=== PATIENT | male | born 1955 | race Native Hawaiian/Other Pacific Islander ===

== ENCOUNTER 2017-10-03 10:47 | Emergency (ER) | payer OTHER, SELFPAY ==
[2017-10-03 10:54] VITALS: BP 133/70; PULSE 70; RESP 18; TEMP 36.7; O2SAT 97
--- NOTE | 2017-10-03 11:15 | ED.WOUNDLAC ---
HPI - Wound/Laceration General Chief Complaint: Wound/Laceration Stated Complaint: CUT LEFT PALM Time Seen by Provider: 10/03/17 10:59 Source: patient Mode of arrival: ambulatory Limitations: no limitations History of Present Illness HPI narrative: Patient is a 61-year-old male who presents with left hand laceration. He was at work when he sliced his hand on a wire and a battery. He has some numbness and tingling in his left ring finger. Full range of motion. Onset (ago): minute(s) Related Data Home Medications Medication Instructions Recorded Confirmed sildenafil [Viagra] 100 mg PO PRN PRN 10/03/17 10/03/17 temazepam 30 mg PO BEDTIME 10/03/17 10/03/17 Previous Rx's Medication Instructions Recorded C-Testosterone 50mg/ml 1 ml TOPICAL QDAY #30 ml 07/04/17 cyclobenzaprine 10 mg tablet 10 mg PO TIDP PRN #30 tab 08/28/17 levothyroxine 100 mcg tablet 100 mcg PO QAM #90 tab 08/28/17 albuterol sulfate [Proventil HFA] 2 puff INH SEE INSTRUCTIONS #8.5 gm 09/12/17 Allergies Allergy/AdvReac Type Severity Reaction Status Date / Time penicillin G [PENICILLIN G] Allergy Severe hives Verified 10/03/17 10:54 Review of Systems Review of Systems GENERAL: Denies chills,fever HEENT: Denies throat pain RESPIRATORY: Denies dyspnea, cough, wheezing CARDIOVASCULAR: Denies chest pain, palpitations GASTROINTESTINAL: Denies nausea, vomiting MUSCULOSKELETAL: Denies extremity pain, injury SKIN: See HPI NEUROLOGIC: Denies weakness, dizziness, headache, numbness 8 point review of systems is negative except for those stated above and HPI PFSH Medical History Hypothyroid (Acute) Surgical History Status post appendectomy Family History Father Cancer Hypertension Social History Smoking Status: Never smoker alcohol intake: never substance use type: does not use Exam Initial Vital Signs Initial Vital Signs: Vital Signs Temperature 98.1 F 10/03/17 10:54 Pulse Rate 70 10/03/17 10:54 Respiratory Rate 18 10/03/17 10:54 Blood Pressure 133/70 H 10/03/17 10:54 Pulse Oximetry 97 10/03/17 10:54 GENERAL: Well-appearing, well-nourished and in no acute distress. CARDIOVASCULAR: peripheral pulses in tact, cap refill <2 sec RESPIRATORY: No respiratory distress, speaks in full sentences without difficulty EXTREMITIES: Normal range of motion, no clubbing or edema. Neurovascularly intact NEUROLOGICAL: Cranial nerves II through XII grossly intact. Normal gait and speech. SKIN: A flap-like laceration on the palmar side at base of 4th finger Procedures Laceration Repair Laceration 1: Site: hand Side (If applicable): left Size (cm): 3 Description: flap Depth: simple, single layer Local Anesthetic: lidocaine 1% and with bicarb Amount of anesthesia used (mL): 3 Pre-repair: wound explored, irrigated extensively and deep structures intact Skin layer closed with: nylon Size (cm): 5-0 Number of sutures: 4 Technique: simple, interrupted Course Vital Signs - 8 hr 10/03/17 10:54 Temperature 98.1 F Pulse Rate 70 Respiratory Rate 18 Blood Pressure 133/70 H Pulse Oximetry 97 Discharge Plan Departure Patient Disposition: Home, Self-Care Clinical Impression: Laceration of hand, left Discharge Date/Time: 10/03/17 11:53 Interventions: ED Discharge Assessment Last Done: 10/03/17 11:51 Instructions: DI for Laceration Repair Activity Restrictions/Additional Instructions: 1. Have your suture removed in 5-7 days, you may go to walk-in clinic, return to the ER or call your primary care physician. 2. No soaking in water including dishes, bathtubs, Lakes, swimming pools etc 3. Signs of infection include, but not limited to, increased redness, increased swelling, increased pain, fever and purulent drainage, if the symptoms should arise, you may need an antibiotic and you should have a reevaluation either by your primary care provider or by the emergency department. Prescriptions: No Action C-Testosterone 50mg/ml cream 1 ml Topical QDAY Qty: 30 RF: 5 levothyroxine 100 mcg tablet 100 mcg PO QAM Qty: 90 RF: 0 cyclobenzaprine 10 mg tablet 10 mg PO TIDP PRN (Reason: muscle spasm) Qty: 30 RF: 1 albuterol sulfate [Proventil HFA] 90 mcg/actuation HFA aerosol inhaler 2 puff INH SEE INSTRUCTIONS Qty: 8.5 RF: 11 sildenafil [Viagra] 100 mg tablet 100 mg PO PRN PRN (Reason: Sexual Activity) RF: 0 temazepam 30 mg capsule 30 mg PO BEDTIME RF: 0 Referrals: Urbano López MD [Primary Care Provider] -
== END 2017-10-03 11:53 | disposition home or self-care (01) ==
LOC: ED 11:38
PROVIDERS: Emergency Provider Emergency Medicine; PCP Family Medicine
DX: S61.412A Laceration without foreign body of left hand, initial encounter (principal); W26.8XXA Contact with other sharp object(s), not elsewhere classified, initial encounter; Y99.0 Civilian activity done for income or pay
CPT/HCPCS: 12001; 12002; 12011; 99283

== ENCOUNTER → 2018-06-11 09:23 | Outpatient (CLI) | payer OTHER, SELFPAY ==
[2018-06-11 10:00] LABS: Add Manual Diff / Slide Review NO; Basophils Absolute Auto 200 /uL (0-100); Basophils Percent Auto 2.6 % (0-2); Eosinophils Absolute Auto 200 /uL (0-450); Eosinophils Percent Auto 3.5 % (2-4); Hematocrit 47.5 % (41-53); Lymphocytes Absolute Auto 2700 /uL (1100-4500); Lymphocytes Percent Auto 44.4 % (25-40); Mean Corpuscular HGB Conc 33.6 % (30-36); Mean Corpuscular Hemoglobin 31.9 PG (26-34); Monocytes Absolute Auto 600 /uL (0-900); Monocytes Percent Auto 9.7 % (3-14); Neutrophils Absolute Auto 2500 /uL (1500-7000); Neutrophils Percent Auto 39.8 % (50-75); Platelet Count 350 X10^3/uL (150-400); Red Cell Distribution Width 14.1 % (11.6-14.8); White Blood Cell Count 6.2 X10^3/uL (4.5-11.0)
[2018-06-11 11:03] LABS: Alanine Aminotransferase 45 IU/L (21-72); Albumin 4.4 g/dL (3.5-5.0); Albumin Globulin Ratio 1.5 (1.0-2.8); Alkaline Phosphatase 78 U/L (38-126); Aspartate Aminotransferase 34 IU/L (17-59); Bilirubin Total 0.6 mg/dL (0.2-1.3); Blood Urea Nitrogen 20 mg/dL (9-20); Calcium 9.7 mg/dL (8.4-10.2); Carbon Dioxide 29 mmol/L (22-32); Chloride 101 mmol/L (98-107); Cholesterol 211 mg/dL (140-199); Estimated Glomerular Filt Rate > 60.0 mL/min (>60); Globulin 2.9 g/dL (1.7-4.1); Glucose 106 mg/dL (80-110); HDL Cholesterol 56 mg/dL (40-60); HEMOLYSIS < 15 (0-50); LDL Cholesterol Calculated 143 mg/dL (<100); Potassium 5.2 mmol/L (3.4-5.1); Sodium 139 mmol/L (137-145); Thyroid Stimulating Hormone 1.42 uIU/mL (0.47-4.68); Total Protein 7.3 g/dL (6.3-8.2); Triglycerides 62 mg/dL (35-150)
[2018-06-11 11:34] LABS: Prostate Specific Antigen 1.58 ng/mL (0.10-4.00)
== END ==
PROVIDERS: PCP Family Medicine; Visit Provider Family Medicine
DX: E03.9 Hypothyroidism, unspecified (principal); E78.2 Mixed hyperlipidemia
CPT/HCPCS: 36415; 80053; 80061; 84153; 84443; 85025

== ENCOUNTER → 2019-10-08 07:43 | Outpatient (CLI) | payer OTHER, SELFPAY ==
[2019-10-08 09:32] LABS: Add Manual Diff / Slide Review NO; Basophils Absolute Auto 100 /uL (0-100); Basophils Percent Auto 2.3 % (0-2); Eosinophils Absolute Auto 200 /uL (0-450); Eosinophils Percent Auto 3.2 % (2-4); Hematocrit 50.1 % (41-53); Hemoglobin 17.2 g/dL (13.5-17.5); Lymphocytes Absolute Auto 2200 /uL (1100-4500); Lymphocytes Percent Auto 36.4 % (25-40); Mean Corpuscular HGB Conc 34.3 % (30-36); Mean Corpuscular Hemoglobin 32.5 PG (26-34); Mean Corpuscular Volume 94.9 fL (80-100); Monocytes Absolute Auto 600 /uL (0-900); Monocytes Percent Auto 10.4 % (3-14); Neutrophils Absolute Auto 2900 /uL (1500-7000); Neutrophils Percent Auto 47.7 % (50-75); Platelet Count 264 X10^3/uL (150-400); Red Blood Cell Count 5.28 X10^6/uL (4.5-5.9); Red Cell Distribution Width 14.5 % (11.6-14.8); White Blood Cell Count 6.1 X10^3/uL (4.5-11.0)
[2019-10-08 09:53] LABS: Alanine Aminotransferase 36 IU/L (<50); Albumin 4.5 g/dL (3.5-5.0); Albumin Globulin Ratio 1.5 (1.0-2.8); Alkaline Phosphatase 81 U/L (38-126); Aspartate Aminotransferase 46 IU/L (17-59); BUN Creatinine Ratio 21.2 (6-22); Bilirubin Total 0.7 mg/dL (0.2-1.3); Blood Urea Nitrogen 21 mg/dL (9-20); Calcium 9.7 mg/dL (8.4-10.2); Carbon Dioxide 28 mmol/L (22-32); Chloride 102 mmol/L (98-107); Cholesterol 236 mg/dL (140-199); Estimated Glomerular Filt Rate > 60.0 mL/min (>60); Globulin 3.1 g/dL (1.7-4.1); Glucose 101 mg/dL (80-110); HDL Cholesterol 65 mg/dL (40-60); HEMOLYSIS < 15 (0-50); LDL Cholesterol Calculated 152 mg/dL (<100); Potassium 4.2 mmol/L (3.4-5.1); Sodium 139 mmol/L (137-145); Total Protein 7.6 g/dL (6.3-8.2); Triglycerides 93 mg/dL (35-150)
[2019-10-08 10:18] LABS: Thyroid Stimulating Hormone 1.53 uIU/mL (0.47-4.68)
== END ==
PROVIDERS: PCP Family Medicine; Referring Provider Family Medicine; Visit Provider Family Medicine
DX: E03.9 Hypothyroidism, unspecified (principal); E78.2 Mixed hyperlipidemia
CPT/HCPCS: 36415; 80053; 80061; 84443; 85025

== ENCOUNTER → 2020-04-17 15:57 | Outpatient (CLI) | payer OTHER, SELFPAY ==
[2020-04-17 17:47] LABS: Add Manual Diff / Slide Review NO; Basophils Absolute Auto 100 /uL (0-100); Basophils Percent Auto 1.1 % (0-2); Eosinophils Absolute Auto 100 /uL (0-450); Eosinophils Percent Auto 2.3 % (2-4); Hematocrit 46.3 % (41-53); Hemoglobin 15.5 g/dL (13.5-17.5); Lymphocytes Absolute Auto 2200 /uL (1100-4500); Mean Corpuscular HGB Conc 33.4 % (30-36); Mean Corpuscular Hemoglobin 31.8 PG (26-34); Monocytes Absolute Auto 600 /uL (0-900); Monocytes Percent Auto 10.8 % (3-14); Neutrophils Absolute Auto 2800 /uL (1500-7000); Neutrophils Percent Auto 47.8 % (50-75); Platelet Count 231 X10^3/uL (150-400); Red Blood Cell Count 4.88 X10^6/uL (4.5-5.9); Red Cell Distribution Width 13.8 % (11.6-14.8); White Blood Cell Count 5.8 X10^3/uL (4.5-11.0)
[2020-04-17 18:29] LABS: Prostate Specific Antigen Scrn 1.23 ng/mL (0.1-4.0)
[2020-04-21 05:10] LABS: Percent Free Testosterone 3.41 % (1.50-4.20); Testosterone Free 22.13 ng/dL (5.00-21.00)
== END ==
PROVIDERS: PCP Family Medicine; Referring Provider Family Medicine; Visit Provider Family Medicine
DX: R79.89 Other specified abnormal findings of blood chemistry (principal); Z12.5 Encounter for screening for malignant neoplasm of prostate
CPT/HCPCS: 36415; 84402; 84403; 85025; G0103

== ENCOUNTER → 2020-09-24 11:10 | Outpatient (CLI) | payer OTHER, SELFPAY ==
--- NOTE | 2020-09-24 11:11 | DI.RAD.S_ITS ---
PROCEDURE: XR ELBOW RT MIN 3V INDICATIONS: right elbow pain TECHNIQUE: 3 views of the elbow were acquired. COMPARISON: None. FINDINGS: Bones: No fractures or dislocations. No suspicious bony lesions. Prominent olecranon bone spur. Soft tissues: No elbow joint effusion. No suspicious soft tissue calcifications. IMPRESSION: Prominent olecranon bone spur. Dictated by: Wenceslao David RRLudivina Interpreted: Valentín Young MD on 09/24/2020 at 12:23 Transcribed by: ALTAGRACIA on 09/24/2020 at 12:23 Approved by: Valentín Young M.D. on 09/24/2020 at 14:46
== END ==
PROVIDERS: PCP Family Medicine; Referring Provider Family Medicine; Visit Provider Family Medicine
DX: M25.521 Pain in right elbow (principal); M70.21 Olecranon bursitis, right elbow; M77.8 Other enthesopathies, not elsewhere classified
CPT/HCPCS: 73080

== ENCOUNTER → 2020-10-21 11:17 | Outpatient (CLI) | payer OTHER, SELFPAY | PROVIDERS: PCP Family Medicine; Visit Provider Physician Assistant | DX: T14.8XXA Other injury of unspecified body region, initial encounter (principal) | CPT/HCPCS: 87070; 87075; 87077; 87205 ==

== ENCOUNTER → 2021-02-17 08:59 | Outpatient (CLI) | payer OTHER, SELFPAY ==
[2021-02-17 10:02] LABS: Add Manual Diff / Slide Review NO; Basophils Absolute Auto 100 /uL (0-100); Basophils Percent Auto 1.5 % (0-2); Eosinophils Absolute Auto 200 /uL (0-450); Eosinophils Percent Auto 4.1 % (2-4); Hematocrit 45.3 % (41-53); Hemoglobin 15.4 g/dL (13.5-17.5); Lymphocytes Absolute Auto 1700 /uL (1100-4500); Lymphocytes Percent Auto 32.6 % (25-40); Mean Corpuscular HGB Conc 33.9 % (30-36); Mean Corpuscular Volume 94.3 fL (80-100); Monocytes Absolute Auto 500 /uL (0-900); Monocytes Percent Auto 10.4 % (3-14); Neutrophils Absolute Auto 2700 /uL (1500-7000); Neutrophils Percent Auto 51.4 % (50-75); Platelet Count 256 X10^3/uL (150-400); Red Cell Distribution Width 13.6 % (11.6-14.8); White Blood Cell Count 5.2 X10^3/uL (4.5-11.0)
[2021-02-17 11:38] LABS: Erythrocyte Sedimentation Rate 2 MM/HR (0-15)
== END ==
PROVIDERS: PCP Family Medicine; Referring Provider Orthopaedic Surgery; Visit Provider Orthopaedic Surgery
DX: Z01.812 Encounter for preprocedural laboratory examination (principal)
CPT/HCPCS: 36415; 85025; 85651

== ENCOUNTER → 2022-02-18 11:25 | Outpatient (CLI) | payer OTHER, SELFPAY ==
[2022-02-18 13:42] LABS: Add Manual Diff / Slide Review NO; Basophils Absolute Auto 100 /uL (0-100); Basophils Percent Auto 1.3 % (0-2); Eosinophils Absolute Auto 100 /uL (0-450); Hematocrit 50.1 % (41-53); Hemoglobin 16.4 g/dL (13.5-17.5); Lymphocytes Absolute Auto 1700 /uL (1100-4500); Lymphocytes Percent Auto 27.7 % (25-40); Mean Corpuscular HGB Conc 32.6 % (30-36); Monocytes Absolute Auto 500 /uL (0-900); Monocytes Percent Auto 8.9 % (3-14); Neutrophils Absolute Auto 3700 /uL (1500-7000); Neutrophils Percent Auto 60.1 % (50-75); Platelet Count 279 X10^3/uL (150-400); Red Blood Cell Count 5.27 X10^6/uL (4.5-5.9); Red Cell Distribution Width 14.1 % (11.6-14.8); White Blood Cell Count 6.1 X10^3/uL (4.5-11.0)
[2022-02-18 14:39] LABS: Alanine Aminotransferase 28 IU/L (<50); Albumin 4.3 g/dL (3.5-5.0); Albumin Globulin Ratio 1.4 (1.0-2.8); Alkaline Phosphatase 64 U/L (38-126); Aspartate Aminotransferase 29 IU/L (17-59); BUN Creatinine Ratio 27.4 (6-22); Blood Urea Nitrogen 26 mg/dL (9-20); Carbon Dioxide 31 mmol/L (22-32); Chloride 100 mmol/L (98-107); Cholesterol 245 mg/dL (140-199); Estimated Glomerular Filt Rate > 60 mL/min (>60); Globulin 3.1 g/dL (1.7-4.1); Glucose 91 mg/dL (80-110); HDL Cholesterol 55 mg/dL (40-60); HEMOLYSIS < 15 (0-50); LDL Cholesterol Calculated 171 mg/dL (<100); Potassium 4.6 mmol/L (3.4-5.1); Sodium 138 mmol/L (137-145); Total Protein 7.4 g/dL (6.3-8.2); Triglycerides 97 mg/dL (35-150)
[2022-02-18 15:09] LABS: TSH w/ Reflex to FT4 1.78 uIU/mL (0.47-4.68)
[2022-02-26 12:27] LABS: Percent Free Testosterone 2.33 % (1.50-4.20); Testosterone Free 12.59 ng/dL (5.00-21.00); Testosterone Total 540.4 ng/dL (264.0-916.0)
== END ==
PROVIDERS: PCP Family Medicine; Referring Provider Family Medicine; Visit Provider Family Medicine
DX: E03.9 Hypothyroidism, unspecified (principal); E78.2 Mixed hyperlipidemia; F51.01 Primary insomnia; N30.10 Interstitial cystitis (chronic) without hematuria; R79.89 Other specified abnormal findings of blood chemistry
CPT/HCPCS: 36415; 80053; 80061; 84402; 84403; 84443; 85025

== ENCOUNTER 2022-07-12 10:15 | Emergency (ER) | payer OTHER, SELFPAY ==
[2022-07-12] VITALS (23 sets, daily range): BP systolic 90–148; BP diastolic 56–93; PULSE 56–140; RESP 10–24; TEMP 36.4; O2SAT 96–100; BMI 21.2
--- NOTE | 2022-07-12 10:28 | DI.RAD.S_ITS ---
PROCEDURE: XR CHEST 1V INDICATIONS: chest pain TECHNIQUE: One view of the chest was acquired. COMPARISON: [facility], CHEST 1 VIEW, 08/28/2014, 14:38. [facility], CHEST 2 VIEW, 03/25/2013, 15:37. FINDINGS: Surgical changes and devices: None. Lungs and pleura: Lungs are clear. No pleural effusions or pneumothorax. Mediastinum: Mediastinal contours appear normal. Heart size is normal. Bones and chest wall: No suspicious bony lesions. Overlying soft tissues appear unremarkable. IMPRESSION: No acute radiographic abnormality. Dictated by: Mohan Arnold M.D. on 07/12/2022 at 10:45 Approved by: Mohan Arnold M.D. on 07/12/2022 at 10:45
[2022-07-12 10:45] LABS: Add Manual Diff / Slide Review NO; Basophils Absolute Auto 100 /uL (0-100); Basophils Percent Auto 1.2 % (0-2); Eosinophils Absolute Auto 200 /uL (0-450); Eosinophils Percent Auto 2.3 % (2-4); Hematocrit 47.1 % (41-53); Lymphocytes Absolute Auto 1900 /uL (1100-4500); Lymphocytes Percent Auto 26.5 % (25-40); Mean Corpuscular HGB Conc 34.1 % (30-36); Mean Corpuscular Hemoglobin 31.9 PG (26-34); Mean Corpuscular Volume 93.6 fL (80-100); Monocytes Absolute Auto 800 /uL (0-900); Monocytes Percent Auto 10.2 % (3-14); Neutrophils Absolute Auto 4400 /uL (1500-7000); Neutrophils Percent Auto 59.8 % (50-75); Platelet Count 264 X10^3/uL (150-400); Red Blood Cell Count 5.04 X10^6/uL (4.5-5.9); Red Cell Distribution Width 14.9 % (11.6-14.8); White Blood Cell Count 7.4 X10^3/uL (4.5-11.0)
--- NOTE | 2022-07-12 10:48 | ED.GENADULT ---
HPI - General Adult General Chief complaint: Arrhythmia/Palpitations Stated complaint: heart arrhythmia Time Seen by Provider: 07/12/22 10:33 Source: patient Mode of arrival: Ambulatory History of Present Illness HPI narrative: Patient is a 66-year-old male. Has a distant history of atrial fibrillation. Has had an ablation in the past. That was approximately 10 years ago. He has not had any issues since then. This morning he states that he woke up and after he went to work he started to feel palpitations. Was somewhat lightheaded. No chest pain. Has been consistent since the onset. No recent medication changes. No abdominal pain nausea vomiting. No headaches. He is not on anticoagulation. Related Data Previous Rx's Medication Instructions Recorded sildenafil 100 mg tablet (Viagra) 100 mg PO PRN PRN Sexual Activity 12/10/21 #10 tabs oxybutynin chloride 5 mg tablet See Rx Instructions .Route 12/21/21 .COMPLEX #90 tabs temazepam 30 mg capsule See Rx Instructions .Route 02/17/22 .COMPLEX #30 caps cyclobenzaprine 10 mg tablet 10 mg PO TID #90 tabs 03/18/22 albuterol sulfate 90 mcg/actuation 2 puff inhalation Q6H #8.5 grams 05/03/22 aerosol inhaler (Proventil HFA) C-TESTOSTERONE 50MG/ML VERSABASE See Rx Instructions .Route 06/13/22 CREAM .COMPLEX #30 mL levothyroxine 100 mcg tablet See Rx Instructions .Route 07/08/22 .COMPLEX #90 tabs rivaroxaban 20 mg tablet (Xarelto) 20 mg PO QPM #30 tabs 07/12/22 Allergies Allergy/AdvReac Type Severity Reaction Status Date / Time penicillin G [PENICILLIN G] Allergy Severe hives Verified 07/12/22 10:28 Review of Systems Constitutional Constitutional: Reports system reviewed and no additional complaints, except as documented Cardiovascular Cardiovascular: Reports system reviewed and no additional complaints, except as documented Respiratory Respiratory: Reports system reviewed and no additional complaints, except as documented Gastrointestinal Gastrointestinal: Reports system reviewed and no additional complaints, except as documented Musculoskeletal Musculoskeletal: Reports system reviewed and no additional complaints, except as documented Integumentary/Breasts Skin/Breast: Reports system reviewed and no additional complaints, except as documented Neurologic Neurologic: Reports system reviewed and no additional complaints, except as documented Hematologic/Lymphatic On Anticoagulants: No Patient History Medical History 1st degree AV block History of atrial fibrillation Hypothyroid Insomnia Low testosterone in male Olecranon bone spur Plantar wart of both feet Surgical History History of radiofrequency ablation procedure for cardiac arrhythmia Status post appendectomy Family History Father Cancer Hypertension Social History Smoking Status: Former smoker alcohol intake: never substance use type: does not use Smoking Status: Former smoker alcohol intake frequency: holidays/special occasions only Substance Use Type: does not use Exam Initial Vital Signs Initial Vital Signs: Vital Signs Temperature 97.5 F L 07/12/22 10:24 Pulse Rate 120 H 07/12/22 10:24 Respiratory Rate 12 07/12/22 10:24 Blood Pressure 148/93 H 07/12/22 10:24 Pulse Oximetry 99 07/12/22 10:24 Oxygen Delivery Method Room Air 07/12/22 10:24 HENMT Head: normal to inspection and normocephalic Resp Effort & Inspection: normal respiratory effort Auscultation: clear to auscultation bilaterally Cardio Rate: tachycardic Rhythm: abnormal rhythm GI Inspection: normal to inspection and non-distended Skin General: no rashes or lesions noted Neuro General: patient alert, patient awake and moves all extremities Extrem General: normal to inspection and capillary refill normal Procedures Procedural Sedation Consent signed: Yes Time out performed: Yes Indication: cardioversion ASA Class: II Mallampati Airway Classification: Class II Preparation: youth nutritional monitor applied, pulse oximeter, capnometry used, supplemental O2 applied, suction/airway equipment at bedside and IV secured Fentanyl: IV Fentanyl dose (mcg): 12 IV Propofol dose (mg): 90 Intraservice time/total sedation time (min): 15 ED Sedation Level: Moderate (Concious) Patient Tolerated Procedure: Well Complications: hypoventilation Interventions: Airway repositioned and Oxygen applied Course Orders Ordered: ED Orders 07/12/22 10:24 COVID19 -Nasal RAPID Stat Complete Blood Count AUTO DIFF Stat Comprehensive Metabolic Panel Stat Lipase Stat Magnesium Stat PTT Partial Thromboplastin Art Stat Prothrombin Time INR Stat Troponin & CK Cardiac Panel Stat 07/12/22 10:28 XR chest 1V Stat EKG-12 Lead Stat 07/12/22 11:58 EKG-12 Lead Stat Discontinued Medications Fentanyl (Fentanyl 100 Mcg/2 Ml Inj) 12.5 mcg IV NOW ONE Stop: 07/12/22 10:50 Last Admin: 07/12/22 11:45 Dose: 12.5 mcg Documented By: YANETH Sodium Chloride (Normal Saline 0.9%) 1,000 mls @ 125 mls/hr IV CONT PATO Last Infusion: 07/12/22 13:03 Dose: 1,000 mls/hr Documented By: JUAN J Infusion: 07/12/22 12:00 Dose: 1,000 mls/hr Documented By: Admin: 07/12/22 11:15 Dose: 125 mls/hr Documented By: YANETH Propofol (Propofol 200 Mg/20 Ml Vial) 100 mg IV NOW ONE Stop: 07/12/22 10:50 Last Admin: 07/12/22 11:53 Dose: 90 mg Documented By: YANETH Vital Signs Vital signs: Vital Signs - 8 hr 07/12/22 10:24 07/12/22 11:05 07/12/22 11:53 Temperature 97.5 F L Pulse Rate 120 H 135 H 96 H Respiratory Rate 12 19 22 Blood Pressure 148/93 H 134/71 127/81 Pulse Oximetry 99 96 99 Oxygen Delivery Method Room Air Oxygen Flow Rate 07/12/22 11:57 07/12/22 11:59 07/12/22 12:05 Temperature Pulse Rate 70 66 66 Respiratory Rate 19 12 14 Blood Pressure 122/80 99/61 90/58 L Pulse Oximetry 98 98 99 Oxygen Delivery Method Oxygen Flow Rate 2 2 2 07/12/22 12:11 07/12/22 12:15 07/12/22 12:20 Temperature Pulse Rate 64 64 56 L Respiratory Rate 15 12 10 L Blood Pressure 113/67 107/58 L 104/57 L Pulse Oximetry 97 98 97 Oxygen Delivery Method Oxygen Flow Rate 2 1 0 07/12/22 12:25 07/12/22 10:25 07/12/22 10:25 Temperature Pulse Rate 58 L 130 H Respiratory Rate 22 17 Blood Pressure 119/61 148/93 H Pulse Oximetry 99 100 Oxygen Delivery Method Oxygen Flow Rate 0 07/12/22 10:30 07/12/22 10:31 07/12/22 10:31 Temperature Pulse Rate 124 H 140 H Respiratory Rate 12 19 Blood Pressure 129/69 Pulse Oximetry 97 97 Oxygen Delivery Method Oxygen Flow Rate 07/12/22 11:00 07/12/22 11:00 07/12/22 11:30 Temperature Pulse Rate 111 H Respiratory Rate 19 Blood Pressure 134/71 127/81 Pulse Oximetry 98 Oxygen Delivery Method Oxygen Flow Rate 07/12/22 11:30 07/12/22 12:00 07/12/22 12:00 Temperature Pulse Rate 107 H 66 Respiratory Rate 21 24 Blood Pressure 99/61 Pulse Oximetry 100 98 Oxygen Delivery Method Oxygen Flow Rate 07/12/22 12:05 07/12/22 12:05 07/12/22 12:10 Temperature Pulse Rate 66 Respiratory Rate 15 Blood Pressure 90/58 L 113/67 Pulse Oximetry 97 Oxygen Delivery Method Oxygen Flow Rate 07/12/22 12:10 07/12/22 12:15 07/12/22 12:15 Temperature Pulse Rate 67 63 Respiratory Rate 17 11 L Blood Pressure 107/58 L Pulse Oximetry 98 98 Oxygen Delivery Method Oxygen Flow Rate 07/12/22 12:20 07/12/22 12:20 07/12/22 12:25 Temperature Pulse Rate 57 L Respiratory Rate 10 L Blood Pressure 104/57 L 119/61 Pulse Oximetry 98 Oxygen Delivery Method Oxygen Flow Rate 07/12/22 12:25 07/12/22 12:30 07/12/22 12:30 Temperature Pulse Rate 56 L 64 Respiratory Rate 20 12 Blood Pressure 113/65 Pulse Oximetry 99 97 Oxygen Delivery Method Oxygen Flow Rate 07/12/22 12:35 07/12/22 12:35 07/12/22 12:40 Temperature Pulse Rate 64 Respiratory Rate 15 Blood Pressure 122/68 133/56 L Pulse Oximetry 98 Oxygen Delivery Method Oxygen Flow Rate 07/12/22 12:40 07/12/22 12:45 07/12/22 12:46 Temperature Pulse Rate 66 65 Respiratory Rate 14 23 Blood Pressure 117/62 Pulse Oximetry 97 98 Oxygen Delivery Method Oxygen Flow Rate 07/12/22 13:55 Temperature Pulse Rate Respiratory Rate 12 Blood Pressure Pulse Oximetry Oxygen Delivery Method Oxygen Flow Rate Medical Decision Making Lab Data Lab results reviewed: Yes I reviewed the patient's lab results. 07/12/22 10:24 05/16/23 10:24 Labs: Lab Results 07/12/22 07/12/22 07/12/22 Range/Units 10:24 10:24 10:24 WBC 7.4 (4.5-11.0) X10^3/uL RBC 5.04 (4.5-5.9) X10^6/uL Hgb 16.0 (13.5-17.5) g/dL Hct 47.1 (41-53) % MCV 93.6 (80-100) fL MCH 31.9 (26-34) PG MCHC 34.1 (30-36) % RDW 14.9 H (11.6-14.8) % Plt Count 264 (150-400) X10^3/uL Neut % (Auto) 59.8 (50-75) % Lymph % (Auto) 26.5 (25-40) % [place] % (Auto) 10.2 (3-14) % Eos % (Auto) 2.3 (2-4) % Baso % (Auto) 1.2 (0-2) % Neut # (Auto) 4400 (9702-8003) /uL Lymph # (Auto) 1900 (2204-5844) /uL [place] # (Auto) 800 (0-900) /uL Eos # (Auto) 200 (0-450) /uL Baso # (Auto) 100 (0-100) /uL PT 12.7 (10.1-12.7) SECONDS INR 1.1 (0.9-1.3) APTT 30 (26-36) SECONDS Sodium 135 L (137-145) mmol/L Potassium 4.1 (3.4-5.1) mmol/L Chloride 103 (98-107) mmol/L Carbon Dioxide 22 (22-32) mmol/L BUN 22 H (9-20) mg/dL Creatinine 1.17 (0.66-1.25) mg/dL Estimated GFR > 60 (>60) mL/min BUN/Creatinine Ratio 18.8 (6-22) Glucose 117 H (80-110) mg/dL Calcium 9.4 (8.4-10.2) mg/dL Magnesium 1.7 (1.6-2.3) mg/dL Total Bilirubin 1.0 (0.2-1.3) mg/dL AST 31 (17-59) IU/L ALT 24 (<50) IU/L Alkaline Phosphatase 72 (38-126) U/L Total Creatine Kinase 195 H (55-170) U/L CK-MB (CK-2) 3.06 H (<2.37) ng/mL CK-MB (CK-2) Rel Index 1.6 (1.5-5.0) % Troponin I < 0.012 (0.01-0.034) ng/mL Total Protein 7.3 (6.3-8.2) g/dL Albumin 4.2 (3.5-5.0) g/dL Globulin 3.1 (1.7-4.1) g/dL Albumin/Globulin Ratio 1.4 (1.0-2.8) Lipase 66 (23-300) U/L SARS-CoV-2 (PCR) (Negative) 07/12/22 Range/Units 10:24 WBC (4.5-11.0) X10^3/uL RBC (4.5-5.9) X10^6/uL Hgb (13.5-17.5) g/dL Hct (41-53) % MCV (80-100) fL MCH (26-34) PG MCHC (30-36) % RDW (11.6-14.8) % Plt Count (150-400) X10^3/uL Neut % (Auto) (50-75) % Lymph % (Auto) (25-40) % [place] % (Auto) (3-14) % Eos % (Auto) (2-4) % Baso % (Auto) (0-2) % Neut # (Auto) (1357-1504) /uL Lymph # (Auto) (5457-3845) /uL [place] # (Auto) (0-900) /uL Eos # (Auto) (0-450) /uL Baso # (Auto) (0-100) /uL PT (10.1-12.7) SECONDS INR (0.9-1.3) APTT (26-36) SECONDS Sodium (137-145) mmol/L Potassium (3.4-5.1) mmol/L Chloride (98-107) mmol/L Carbon Dioxide (22-32) mmol/L BUN (9-20) mg/dL Creatinine (0.66-1.25) mg/dL Estimated GFR (>60) mL/min BUN/Creatinine Ratio (6-22) Glucose (80-110) mg/dL Calcium (8.4-10.2) mg/dL Magnesium (1.6-2.3) mg/dL Total Bilirubin (0.2-1.3) mg/dL AST (17-59) IU/L ALT (<50) IU/L Alkaline Phosphatase (38-126) U/L Total Creatine Kinase (55-170) U/L CK-MB (CK-2) (<2.37) ng/mL CK-MB (CK-2) Rel Index (1.5-5.0) % Troponin I (0.01-0.034) ng/mL Total Protein (6.3-8.2) g/dL Albumin (3.5-5.0) g/dL Globulin (1.7-4.1) g/dL Albumin/Globulin Ratio (1.0-2.8) Lipase (23-300) U/L SARS-CoV-2 (PCR) Negative (Negative) Imaging Data Chest x-ray: Radiologist's Impression: PROCEDURE:? XR CHEST 1V ? INDICATIONS:? chest pain ? TECHNIQUE:? One view of the chest was acquired.? ? COMPARISON:? [facility], CHEST 1 VIEW, 08/28/2014, 14:38.? [facility], CHEST 2 VIEW, 03/25/2013, 15:37. ? FINDINGS:? ? Surgical changes and devices:? None.? ? Lungs and pleura:? Lungs are clear.? No pleural effusions or pneumothorax.? ? Mediastinum:? Mediastinal contours appear normal.? Heart size is normal.? ? Bones and chest wall:? No suspicious bony lesions.? Overlying soft tissues appear unremarkable.? ? IMPRESSION:? No acute radiographic abnormality. ECG Data Attestation: I personally reviewed and interpreted this ECG as follows: Interpretation: Atrial fibrillation Ventricular rate 128 Normal axis Normal QRS Nonspecific ST T wave changes Post cardioversion Sinus rhythm Ventricular rate is 69 Normal axis Normal QRS Normal QTC No ST T wave changes MDM Narrative Medical decision making narrative: Patient is in atrial fibrillation. His symptoms started this morning. He is not anticoagulated. He is a candidate for cardioversion. We did discuss rate control versus rhythm control. After this discussion he opted for cardioversion. He was sedated as described above. He was cardioverted successfully back to sinus rhythm after 1 attempt. Patient recovered without issue. We will start the patient on anticoagulation for the next month. He was instructed to contact his primary doctor for follow-up. He was given strict return precautions. He expressed understanding and agreement with plan. Discharge Plan Departure Patient Disposition: Home Clinical Impression: Atrial fibrillation Instructions: DI for Cardioversion, DI for Atrial Fibrillation Activity Restrictions/Additional Instructions: I do recommend you continue to take all of your medications as directed. Because of the procedure that was done today we do need to put you on a blood thinner. This medication is called Xarelto. It was sent to [facility]. I do recommend that you Google ?Xarelto co-pay card? and fill out the information. The numbers that are provided will drastically reduce the cost of this medication. Contact your primary doctor for a follow-up. Return to the emergency department for new or worsening symptoms. Prescriptions: New Xarelto 20 mg tablet 20 mg PO QPM Qty: 30 0RF Rx Instructions: must administer with evening meal No Action sildenafil [Viagra] 100 mg tablet 100 mg PO PRN PRN (Reason: Sexual Activity) Qty: 10 3RF Rx Instructions: Take 1/2 or 1 tab about 1 hr prior to sexual activity. Max one per day. oxybutynin chloride 5 mg tablet See Rx Instructions .ROUTE .COMPLEX Qty: 90 3RF Dose Instruction: TAKE ONE TABLET BY MOUTH ONE TIME DAILY Rx Instructions: TAKE ONE TABLET BY MOUTH ONE TIME DAILY temazepam 30 mg capsule See Rx Instructions .ROUTE .COMPLEX Qty: 30 5RF Dose Instruction: TAKE ONE CAPSULE BY MOUTH AT BEDTIME Rx Instructions: TAKE ONE CAPSULE BY MOUTH AT BEDTIME cyclobenzaprine 10 mg tablet 10 mg PO TID Qty: 90 4RF Rx Instructions: FASTING LABS DUE + APPT IN DEC/BEFORE END OF RX AND FUTURE FILLS. PLEASE CALL TO SCHEDULE APPT. THANK YOU 10/26/21. albuterol sulfate [Proventil HFA] 90 mcg/actuation HFA aerosol inhaler 2 puff Inhalation Q6H Qty: 8.5 11RF Rx Instructions: Inhale two puffs by mouth up to every six hours as needed for SOB C-TESTOSTERONE 50MG/ML VERSABASE CREAM See Rx Instructions .ROUTE .COMPLEX Qty: 30 0RF Dose Instruction: APPLY 1ML (4 CLICKS) EVERY DAY DIRECTED ([place]IC[place]ICK) Rx Instructions: APPLY 1ML (4 CLICKS) EVERY DAY DIRECTED (TOPICLICK) levothyroxine 100 mcg tablet See Rx Instructions .ROUTE .COMPLEX Qty: 90 3RF Dose Instruction: TAKE ONE TABLET BY MOUTH EVERY MORNING. --FASTING LABS DUE IN JANUARY BEFORE FUTURE FILLS. PLEASE CALL TO SCHEDULE--- Rx Instructions: TAKE ONE TABLET BY MOUTH EVERY MORNING. --FASTING LABS DUE IN JANUARY BEFORE FUTURE FILLS. PLEASE CALL TO SCHEDULE--- Referrals: Chris Nunez MD [Primary Care Provider] - Stand Alone Forms: Patient Portal/API, Work Release Note
[2022-07-12 10:49] LABS: INR 1.1 (0.9-1.3); Prothrombin Time 12.7 SECONDS (10.1-12.7)
[2022-07-12 10:51] LABS: PTT Partial Thromboplastin Tim 30 SECONDS (26-36)
[2022-07-12 10:52] LABS: Alanine Aminotransferase 24 IU/L (<50); Albumin 4.2 g/dL (3.5-5.0); Albumin Globulin Ratio 1.4 (1.0-2.8); Alkaline Phosphatase 72 U/L (38-126); Aspartate Aminotransferase 31 IU/L (17-59); BUN Creatinine Ratio 18.8 (6-22); Blood Urea Nitrogen 22 mg/dL (9-20); Calcium 9.4 mg/dL (8.4-10.2); Carbon Dioxide 22 mmol/L (22-32); Chloride 103 mmol/L (98-107); Creatine Kinase 195 U/L (55-170); Estimated Glomerular Filt Rate > 60 mL/min (>60); Globulin 3.1 g/dL (1.7-4.1); Glucose 117 mg/dL (80-110); Lipase 66 U/L (23-300); Magnesium 1.7 mg/dL (1.6-2.3); Potassium 4.1 mmol/L (3.4-5.1); Sodium 135 mmol/L (137-145); Total Protein 7.3 g/dL (6.3-8.2)
[2022-07-12 11:01] LABS: COVID19 -Nasal RAPID Negative (Negative)
[2022-07-12 11:04] LABS: Troponin I < 0.012 ng/mL (0.01-0.034)
[2022-07-12 11:07] LABS: CKMB % Relative Index 1.6 % (1.5-5.0); Creatine Kinase MB 3.06 ng/mL (<2.37); HEMOLYSIS < 15 (0-50)
[2022-07-12] MEDS: SODIUM CHLORIDE 0.9% 1,000 ML 125 ML IV (11:15)
[2022-07-12] MEDS: fentaNYL 100 MCG/2 ML INJ 12.5 MCG IV (11:45)
[2022-07-12] MEDS: propofoL 200 MG/20 ML VIAL 100 MG IV (11:53)
== END 2022-07-12 13:05 | disposition home or self-care (01) ==
PROVIDERS: Emergency Provider Emergency Medicine; PCP Family Medicine
DX: I48.91 Unspecified atrial fibrillation (principal); R07.9 Chest pain, unspecified; Z20.822 Contact with and (suspected) exposure to COVID-19
CPT/HCPCS: 36415; 71045; 80053; 82550; 82553; 83690; 83735; 84484; 85025; 85610; 85730; 87635; 92960; 93005; 96360; 96361; 99152; 99285; C9803; J2704; J3010

== ENCOUNTER → 2022-09-16 07:21 | Outpatient (CLI) | payer OTHER, SELFPAY ==
[2022-09-16 09:51] LABS: Free T4, Direct Thyroxine 1.67 ng/dL (0.78-2.19)
[2022-09-16 09:54] LABS: Cholesterol 189 mg/dL (140-199); HDL Cholesterol 55 mg/dL (40-60); LDL Cholesterol Calculated 119 mg/dL (<100); Triglycerides 75 mg/dL (35-150)
[2022-09-16 10:05] LABS: Thyroid Stimulating Hormone 1.55 uIU/mL (0.47-4.68)
[2022-09-17 08:47] LABS: x Labcorp Estim. Avg Glu (eAG) 117 mg/dL (.); x Labcorp Hemoglobin A1c 5.7 % (4.8-5.6)
== END ==
PROVIDERS: PCP Family Medicine; Referring Provider Internal Medicine Cardiovascular Disease; Visit Provider Internal Medicine Cardiovascular Disease
DX: E78.5 Hyperlipidemia, unspecified (principal); R73.9 Hyperglycemia, unspecified; I48.91 Unspecified atrial fibrillation
CPT/HCPCS: 36415; 80061; 83036; 84439; 84443

== ENCOUNTER → 2023-02-18 09:45 | Outpatient (CLI) | payer OTHER, SELFPAY ==
[2023-02-18 10:21] LABS: Add Manual Diff / Slide Review NO; Basophils Absolute Auto 100 /uL (0-100); Basophils Percent Auto 1.2 % (0-2); Eosinophils Absolute Auto 200 /uL (0-450); Eosinophils Percent Auto 3.3 % (2-4); Hematocrit 47.5 % (41-53); Hemoglobin 15.7 g/dL (13.5-17.5); Lymphocytes Absolute Auto 2000 /uL (1100-4500); Lymphocytes Percent Auto 37.6 % (25-40); Mean Corpuscular HGB Conc 33.1 % (30-36); Mean Corpuscular Hemoglobin 31.6 PG (26-34); Mean Corpuscular Volume 95.4 fL (80-100); Monocytes Absolute Auto 500 /uL (0-900); Monocytes Percent Auto 9.9 % (3-14); Neutrophils Absolute Auto 2600 /uL (1500-7000); Platelet Count 226 X10^3/uL (150-400); Red Blood Cell Count 4.98 X10^6/uL (4.5-5.9); Red Cell Distribution Width 14.2 % (11.6-14.8); White Blood Cell Count 5.4 X10^3/uL (4.5-11.0)
[2023-02-18 10:44] LABS: Alanine Aminotransferase 26 IU/L (<50); Albumin 3.9 g/dL (3.5-5.0); Albumin Globulin Ratio 1.4 (1.0-2.8); Alkaline Phosphatase 53 U/L (38-126); Aspartate Aminotransferase 31 IU/L (17-59); BUN Creatinine Ratio 18.8 (6-22); Blood Urea Nitrogen 19 mg/dL (9-20); Calcium 9.3 mg/dL (8.4-10.2); Carbon Dioxide 30 mmol/L (22-32); Chloride 102 mmol/L (98-107); Cholesterol 197 mg/dL (140-199); Estimated Glomerular Filt Rate > 60 mL/min (>60); Globulin 2.7 g/dL (1.7-4.1); Glucose 96 mg/dL (80-110); HDL Cholesterol 49 mg/dL (40-60); HEMOLYSIS < 15 (0-50); LDL Cholesterol Calculated 133 mg/dL (<100); Potassium 4.5 mmol/L (3.4-5.1); Sodium 136 mmol/L (137-145); Total Protein 6.6 g/dL (6.3-8.2); Triglycerides 73 mg/dL (35-150)
[2023-02-18 10:47] LABS: Creatinine Urine Random 180.6 mg/dL
[2023-02-18 10:51] LABS: Microalbumi Creatinin Ratio Ur 13.2 ug/mg CR (<30); Microalbumin Urine Random 2.4 mg/dL (0-1.6)
[2023-02-18 11:15] LABS: Prostate Specific Antigen Scrn 2.02 ng/mL (0.1-4.0)
[2023-02-18 11:16] LABS: TSH w/ Reflex to FT4 0.69 uIU/mL (0.47-4.68)
[2023-02-28 08:08] LABS: Percent Free Testosterone 2.12 % (1.50-4.20); Testosterone Total 434.1 ng/dL (264.0-916.0)
== END ==
PROVIDERS: PCP Family Medicine; Referring Provider Family Medicine; Visit Provider Family Medicine
DX: E78.2 Mixed hyperlipidemia (principal); E03.9 Hypothyroidism, unspecified; R79.89 Other specified abnormal findings of blood chemistry; Z00.00 Encounter for general adult medical examination without abnormal findings; F51.01 Primary insomnia; N30.10 Interstitial cystitis (chronic) without hematuria; Z12.5 Encounter for screening for malignant neoplasm of prostate
CPT/HCPCS: 36415; 80053; 80061; 82043; 82570; 84402; 84403; 84443; 85025; G0103

== ENCOUNTER → 2023-02-21 13:43 | Outpatient (CLI) | payer OTHER, SELFPAY ==
[2023-02-23 14:45] LABS: Fecal Immunochemical Test Negative (Negative)
== END ==
PROVIDERS: PCP Family Medicine; Referring Provider Family Medicine; Visit Provider Family Medicine
DX: Z12.11 Encounter for screening for malignant neoplasm of colon (principal)
CPT/HCPCS: 82274

== ENCOUNTER → 2023-02-24 08:50 | Outpatient (CLI) | payer OTHER, SELFPAY ==
--- NOTE | 2023-02-24 08:52 | DI.RAD.S_ITS ---
PROCEDURE: XR ELBOW LT MIN 3V INDICATIONS: Left Elbow pain TECHNIQUE: 3 views of the elbow were acquired. COMPARISON: None. FINDINGS: Bones: No fractures or dislocations. No suspicious bony lesions. Mild degenerative change. Soft tissues: No elbow joint effusion. No suspicious soft tissue calcifications. IMPRESSION: Mild degenerative change. No acute bony abnormality. Dictated by: Rayshawn Lynne M.D. on 02/24/2023 at 10:24 Approved by: Rayshawn Lynne M.D. on 02/24/2023 at 10:25
== END ==
PROVIDERS: PCP Family Medicine; Referring Provider Family Medicine; Visit Provider Family Medicine
DX: M25.522 Pain in left elbow (principal)
CPT/HCPCS: 73080

== ENCOUNTER → 2024-02-27 07:15 | Outpatient (CLI) | payer BC, SELFPAY ==
[2024-02-27 07:56] LABS: Add Manual Diff / Slide Review NO; Basophils Absolute Auto 100 /uL (0-100); Basophils Percent Auto 1.2 % (0-2); Eosinophils Absolute Auto 300 /uL (0-450); Eosinophils Percent Auto 4.7 % (2-4); Hematocrit 49.6 % (41-53); Hemoglobin 16.7 g/dL (13.5-17.5); Lymphocytes Absolute Auto 1500 /uL (1100-4500); Lymphocytes Percent Auto 26.1 % (25-40); Mean Corpuscular HGB Conc 33.6 % (30-36); Mean Corpuscular Hemoglobin 32.7 PG (26-34); Mean Corpuscular Volume 97.4 fL (80-100); Monocytes Absolute Auto 600 /uL (0-900); Monocytes Percent Auto 10.6 % (3-14); Neutrophils Absolute Auto 3300 /uL (1500-7000); Neutrophils Percent Auto 57.4 % (50-75); Platelet Count 241 X10^3/uL (150-400); Red Blood Cell Count 5.09 X10^6/uL (4.5-5.9); Red Cell Distribution Width 14.2 % (11.6-14.8); White Blood Cell Count 5.7 X10^3/uL (4.5-11.0)
[2024-02-27 08:49] LABS: Hemoglobin A1C% w Est Avg Glu 5.4 % (4.0-6.0)
[2024-02-27 08:50] LABS: Alanine Aminotransferase 24 IU/L (<50); Albumin Globulin Ratio 1.6 (1.0-2.8); Alkaline Phosphatase 67 U/L (38-126); Aspartate Aminotransferase 40 IU/L (17-59); BUN Creatinine Ratio 15.7 (6-22); Bilirubin Total 0.9 mg/dL (0.2-1.3); Blood Urea Nitrogen 18 mg/dL (9-20); Carbon Dioxide 32 mmol/L (22-32); Chloride 101 mmol/L (98-107); Cholesterol 185 mg/dL (140-199); Estimated Glomerular Filt Rate > 60 mL/min (>60); Globulin 2.5 g/dL (1.7-4.1); Glucose 93 mg/dL (80-110); HDL Cholesterol 48 mg/dL (40-60); HEMOLYSIS < 15 (0-50); LDL Cholesterol Calculated 124 mg/dL (<100); Magnesium 1.8 mg/dL (1.6-2.3); Potassium 3.9 mmol/L (3.4-5.1); Sodium 138 mmol/L (137-145); Total Protein 6.5 g/dL (6.3-8.2); Triglycerides 65 mg/dL (35-150)
[2024-02-27 09:17] LABS: Thyroid Stimulating Hormone 1.74 uIU/mL (0.47-4.68)
== END ==
PROVIDERS: PCP Family Medicine; Referring Provider Internal Medicine Cardiovascular Disease; Visit Provider Internal Medicine Cardiovascular Disease
DX: I48.0 Paroxysmal atrial fibrillation (principal); E78.5 Hyperlipidemia, unspecified; R73.9 Hyperglycemia, unspecified
CPT/HCPCS: 36415; 80053; 80061; 83036; 83735; 84436; 84443; 85025